=== PATIENT | male | born 1980 | race Caucasian/White ===

== ENCOUNTER 2021-05-20 20:18 | Emergency (ER) | payer BC, SELFPAY ==
[2021-05-20 20:19] VITALS: BP 135/92; PULSE 100; RESP 18; TEMP 37.6; O2SAT 89; O2SAT 91; BMI 32.4
[2021-05-20 20:42] VITALS: O2SAT 91
--- NOTE | 2021-05-20 20:57 | EX.ED.VIS.UR ---
HPI HPI - URI History of Present Illness Chief Complaint: Shortness of Breath Informant: patient Onset/Context/Timing Onset: Days Context: Gradual Onset Timing: Continuous Current Severity: Mild Maximum Severity: Mild Associated Symptoms Associated Symptoms: Positive for Nasal Congestion, Myalgias, Diarrhea and Nonproductive cough; Negative for Nausea and Vomiting Narrative Narrative: 40-year-old male nursing of past medical history. Has had URI symptoms for about 9 days. He is unvaccinated against COVID. States has had fever cough and mild shortness of breath. Loose stools. No vomiting. Repeat exam patient is doing well at 10:50 PM. He will be discharged to home on Decadron. Clinically adding this is COVID according to his chest x-ray and his symptoms. We did a negative rapid test but he is 9 days and I will send a PCR. He will be referred for monoclonal antibodies due to his body habitus but otherwise he is a healthy gentleman. He does return if worse. He knows he cannot do the monoclonal antibodies unless he has a positive test result. Prior similar symptoms: No Recent Illness/Hospitalization: No ROS ROS ED ROS Narrative Cough. Fevers. Myalgias. Constitutional Constitutional ED: Reports fever(s) Eyes Eyes: Denies change in vision ENT ENT ED: Denies ear pain or sore throat Cardiovascular Cardiovascular: Denies chest pain Respiratory/Chest Respiratory/Chest: Reports cough and dyspnea Gastrointestinal Gastrointestinal: Reports diarrhea; Denies abdominal pain, nausea or vomiting Genitourinary Genitourinary ED: Denies dysuria Musculoskeletal Musculoskeletal: Reports myalgias Integumentary Denies rash Neurologic Neurologic: Denies headache(s) Psychiatric Psychiatric: Denies depression Endocrine Endocrinology: Denies polyuria Hematologic/Lymphatic Hematologic/Lymphatic: Denies easy bruising Allergic/Immunologic Allergic/Immunologic ED: Denies urticaria PFSH PFSH Medical History no medical history no medical history Home Medications dexamethasone [Decadron] 6 mg PO DAILY 7 Days #7 tab 05/20/21 [Rx Last Taken Unknown] Allergy/AdvReac Type Severity Reaction Status Date / Time Penicillins AdvReac PT UNSURE Verified 05/20/21 20:22 OF REACTION Social History Smoking Status: Never smoker EXAM Physical Exam Narrative Exam Narrative: 40-year-old male no acute distress vital signs stable afebrile temperature nine 9.7 his pulse ox is 91 to 92%. No hypoxia. H EENT exam unremarkable. Moist with members. Neck nontender no JVD. No lymphadenopathy. Lungs clear to auscultation bilaterally. Heart regular rhythm no murmur. Abdomen soft nontender.. Moving all 4 extremities. Calves are nontender without edema or cords. Neurologically is awake and alert with no focal motor deficits. Const Vital Signs: 05/20/21 20:19 05/20/21 20:42 05/20/21 22:21 Temperature 99.7 F H Temperature Source Temporal Pulse Rate 100 Respiratory Rate 18 Respiratory Effort Normal Non-Labored Respiratory Depth Normal Respiratory Pattern Normal Blood Pressure 135/92 H Blood Pressure Mean 106 Pulse Ox 91 91 Oxygen Delivery Method Room Air Room Air Room Air Positive well nourished, well developed and obese; Negative for cachectic or contractures General Appearance ED: well developed and NAD; Negative for cachectic, contractures, cyanotic, diaphoretic or pallor Nutritional Appearance: obese; Negative for cachectic HEENT Reports moist mucous membranes normocephalic and atraumatic; Negative for scalp tenderness External Ear: external ears normal Eyes PERRL and EOMs intact bilaterally Neck no lymphadenopathy, supple, no meningeal signs and no JVD General: Negative for anterior neck swelling Resp normal respiratory effort and clear to auscultation bilaterally Auscultation: Negative for rales, rhonchi or wheezes Cardio S1 normal heart sound, S2 normal heart sound and no murmurs Rate: regular rate Rhythm: regular rhythm GI non-tender, non-distended and no masses Inspection: Negative for abdominal distention Auscultation: normoactive bowel sounds Palpation: soft; Negative for tender or guarding Back/Spine no CVA tenderness and normal ROM General Back: Negative for CVA tenderness Cervical Spine: Negative for cervical spine tenderness Extremity normal to inspection and full ROM General Extremety ED: Negative for cyanosis or tenderness General Extremity: Negative for cyanosis Neuro oriented x3 Sensorium / Orientation: alert, oriented to person, oriented to place and oriented to time Psych mental status grossly normal Attitude: No agitated Mood & Affect: Negative for depressed, anxious or tearful Skin General Skin Exam: Negative for jaundice or pallor Lesions: no lesions Rashes: no rashes MDM MDM MDM Narrative Medical decision making narrative: 40-year-old with URI symptoms we will test for COVID and do a chest x-ray. He is in no distress and is not hypoxic. Lab Data Attestation: I reviewed the patient's lab results. Lab results narrative: Rapid COVID antigen test is Radiography Diagnostic Testing: Clinical Impression(s) from Imaging Studies Chest X-Ray 05/20/21 21:18 IMPRESSION: Atelectasis versus pneumonia. PA and lateral views in the department would be helpful when the patient can tolerate the procedure. Electronically Signed: Eva No MD at 21:58 EST Tel , Service support , Chest x-ray, portable, single view interpreted by myself shows bilateral infiltrates consistent with COVID pneumonitis. Radiologist is unsure of his atelectasis versus infiltrates. Clinically looks like COVID to me personally. Discharge Plan Triage Chief Complaint: Shortness of Breath ED Provider: Alejandro Rocha Dx/Rx/DC Orders Clinical Impression: COVID-19 Instructions: Human Coronaviruses Prescriptions: New dexamethasone [Decadron] 6 mg tablet 6 mg PO DAILY 7 Days Qty: 7 RF: 0 Other Ambulatory Orders: COVID Outpatient Monoclonal Antibody Referral (Routine) Timeframe: 1 Day Facility: [facility] - Location: [facility] Ordered By: Dr. Alejandro Rocha Primary Care Provider: Brody Caldwell Referrals: Brody Caldwell MD [Primary Care Provider] - 3-5 Days if not improving Activity Restrictions/Additional Instructions: Plenty of fluids and rest. Alternate Motrin and Tylenol for body aches and fever. Decadron daily to help decrease the inflammation in your lungs. Your initial rapid COVID antigen test was negative. I will send a PCR test tonight. If that is positive you have been referred to monoclonal antibody center if that would be something to be interested in there would need to do it tomorrow and if they do not call you by 11 AM follow-up with the ER and we can refer you to their center to discuss with them possible monoclonal antibody more. Follow-up with your doctor if not improving return emergency department if feeling worse. You should start seeing improvement in the next 3 to 5 days. Disposition Disposition: Home, Self Care
--- NOTE | 2021-05-20 21:18 | RAD_ITS ---
STUDY: X-RAY CHEST REASON FOR EXAM: Male, 40 years old. cough TECHNIQUE: Single AP portable view of the chest. COMPARISON: None. FINDINGS: Low lung volumes. The lungs are clear and expanded. There is no demonstrated pleural abnormality. Normal size heart. Normal mediastinum and chris. Normal visualized pulmonary arteries. Normal visualized aortic arch and descending thoracic aorta. Normal visualized thoracic spine. Normal visualized ribs, clavicles, and shoulders. There is no demonstrated abnormality of the visualized soft tissue structures of the upper abdomen. RAD/Chest 1 View (Portable) IMPRESSION: Atelectasis versus pneumonia. PA and lateral views in the department would be helpful when the patient can tolerate the procedure. Electronically Signed: Eva No MD at 21:58 EST Tel , Service support ,
[2021-05-20 21:35] VITALS: O2SAT 91
[2021-05-20 22:21] VITALS: O2SAT 91
[2021-05-20] MEDS: dexAMETHasone 4 MG Tablet 6 MG PO (23:28)
== END 2021-05-20 23:29 | disposition home or self-care (01) ==
PROVIDERS: Emergency Provider Emergency Medicine; PCP Family Medicine; Visit Provider Emergency Medicine
DX: U07.1 COVID-19 (principal)
CPT/HCPCS: 71045; 87426; 87635; 99284; U0003; U0005